=== PATIENT | male | born 1985 | race American Indian/Alaskan Native ===

== ENCOUNTER 2016-10-01 00:56 | Emergency (ER) | payer BC ==
[2016-10-01 00:57] VITALS: BMI 24.7
[2016-10-01 01:16] VITALS: BP 116/71; PULSE 56; RESP 16; TEMP 98; O2SAT 99
[2016-10-01] MEDS ORDERED: Sodium Chloride 0.9% 1,000 ML IV STA (01:29)
[2016-10-01 01:58] LABS: BASO % 0.4 % (0.0-2.0); EOS # 0.2 K/uL (0.0-0.7); HEMATOCRIT 43.2 % (35.0-51.0); LYMPH # 1.1 K/uL (1.0-4.3); LYMPH % 25.6 % (20.0-40.0); MEAN CELL VOLUME 88.8 fl (80.0-94.0); MEAN CORPUSCULAR HEMOGLOBIN 29.1 pg (27.0-31.0); MEAN CORPUSCULAR HGB CONC 32.7 g/dL (33.0-37.0); MEAN PLATELET VOLUME 8.3 fl (7.2-11.7); MONO # 0.5 K/uL (0.0-0.8); MONO % 11.2 % (0.0-10.0); NEUT # 2.5 K/uL (1.8-7.0); NEUT % 57.8 % (50.0-75.0); RED CELL DISTRIBUTION WIDTH 13.1 % (11.5-14.5); WHITE BLOOD COUNT 4.4 K/uL (4.8-10.8)
[2016-10-01 02:06] LABS: RBC URINE 25318 /hpf (0-3); URINE BACTERIA RARE (<OCC); URINE BILIRUBIN NEGATIVE (NEGATIVE); URINE BLOOD LARGE (NEGATIVE); URINE COLOR RED (YELLOW); URINE GLUCOSE (UA) 150 mg/dL (Normal); URINE KETONE TRACE mg/dL (NEGATIVE); URINE LEUKOCYTE ESTERASE TRACE Leu/uL (Negative); URINE PROTEIN >=500 mg/dL (NEGATIVE); URINE UROBILINOGEN 0.2-1.0 mg/dL (0.2-1.0); WBC URINE 52 /hpf (0-5)
[2016-10-01 02:10] LABS: BLOOD UREA NITROGEN 12 mg/dl (9-20); CALCIUM 9.6 mg/dL (8.4-10.2); CARBON DIOXIDE 26 mmol/L (22-30); CHLORIDE 102 mmol/L (98-107); GFR AFRICAN-AMERICAN > 60; GLUCOSE,RANDOM 99 mg/dL (75-110); POTASSIUM 3.9 MMOL/L (3.6-5.0); SODIUM 139 mmol/l (132-148)
--- NOTE | 2016-10-01 02:41 | ED PDOC ---
HPI: Male Pain Time Seen by Provider: 10/01/16 01:09 Chief Complaint (Nursing): Male Genitourinary Chief Complaint (Provider): hematuria History Per: Patient History/Exam Limitations: no limitations Onset/Duration Of Symptoms: Hrs Current Symptoms Are (Timing): Intermittent Episodes Additional Complaint(s): 31yo male with PMHx including benign bladder tumor (follows up at [facility] w/ Dr. Tony) presents to the ED with c/o 2 episodes of hematuria tonight. Denies any pain, lightheadedness, dizziness. Patient had a cystoscopy 1 month ago at [facility] that was normal. Patient states hematuria resolved 1 week ago but then began again tonight. Past Medical History Reviewed: Historical Data, Nursing Documentation, Vital Signs Vital Signs: Last Vital Signs Temp 98.0 F 10/01/16 01:13 Pulse 56 L 10/01/16 01:13 Resp 16 10/01/16 01:13 BP 116/71 10/01/16 01:13 Pulse Ox 99 10/01/16 01:13 - Medical History PMH: Denies: Anxiety, Bipolar Disorder, Depression, Personality Disorder, Post Traumatic Stress Disorder, Chronic Kidney Disease, Schizophrenia Other PMH: benign bladder tumor - Surgical History Surgical History: Denies: Pacemaker Other surgeries: cystoscopy - Family History Family History: States: No Known Family Hx - Immunization History Hx Tetanus Toxoid Vaccination: No Hx Influenza Vaccination: No Hx Pneumococcal Vaccination: No - Home Medications Home Medications: Ambulatory Orders Medication Instructions Recorded Ibuprofen [Motrin Tab] 400 mg PO BID 11/03/15 Oxybutynin Chloride [Oxybutynin 5 mg PO DAILY 11/03/15 Chloride ER] Tramadol HCl [Ultram] 50 mg PO Q6 PRN #20 tab 11/03/15 Acetaminophen with Codeine 1 tab PO Q6 PRN 11/21/15 [Tylenol with Codeine #3 Tablet] Amoxicillin/Clavulanate [Augmentin 1 tab PO Q12 11/21/15 875 MG-125 MG Tab] Meth/Meblue/Sod Phos/Psal/Hyos 1 each PO DAILY 11/21/15 [Uroav-B Capsule] - Allergies Allergies/Adverse Reactions: Allergies Allergy/AdvReac Type Severity Reaction Status Date / Time kiwi AdvReac RASH Verified 11/03/15 11:16 Review of Systems ROS Statement: Except As Marked, All Systems Reviewed And Found Negative Constitutional: Positive for: Other (no lightheadedness ) Genitourinary Male: Positive for: Hematuria Neurological: Negative for: Dizziness Physical Exam - Reviewed Nursing Documentation Reviewed: Yes Vital Signs Reviewed: Yes - Physical Exam Appears: Positive for: Well, No Acute Distress Head Exam: Positive for: ATRAUMATIC, NORMAL INSPECTION, NORMOCEPHALIC Skin: Positive for: Normal Color, Warm, Dry Eye Exam: Positive for: Normal appearance, EOMI, PERRL ENT: Positive for: Normal ENT Inspection Neck: Positive for: Normal, Painless ROM, Supple Cardiovascular/Chest: Positive for: Regular Rate, Rhythm. Negative for: Murmur , Tachycardia Respiratory: Positive for: Normal Breath Sounds. Negative for: Wheezing, Respiratory Distress Gastrointestinal/Abdominal: Positive for: Normal Exam, Soft. Negative for: Tenderness Back: Positive for: Normal Inspection. Negative for: L CVA Tenderness, R CVA Tenderness Extremity: Positive for: Normal ROM. Negative for: Deformity, Swelling Neurologic/Psych: Positive for: Alert, Oriented - Laboratory Results Result Diagrams: 10/01/16 01:46 10/01/16 01:46 - ECG O2 Sat by Pulse Oximetry: 99 Pulse Ox Interpretation: Normal (RA) Medical Decision Making Medical Decision Makin: Impression: hematuria Plan: Labs IVF reassess [id number]: Spoke with Dr. Tony's answering service, states patient can be discharged home and f/u outpatient. After IVF, urine starting to clear up. Results given to patient to take to PCP. Patient stable for d/c. Return precautions given. Scribe Attestation: Documented by Bong Gottlieb acting as a scribe for Mj Linder MD. Provider Scribe Attestation: All medical record entries made by the Scribe were at my direction and personally dictated by me. I have reviewed the chart and agree that the record accurately reflects my personal performance of the history, physical exam, medical decision making, and the department course for this patient. I have also personally directed, reviewed, and agree with the discharge instructions and disposition. Disposition - Clinical Impression Clinical Impression: Hematuria - Patient ED Disposition Is Patient to be Admitted: No Counseled Patient/Family Regarding: Studies Performed, Diagnosis, Need For Followup - Disposition Referrals: Ashlee Sylvester MD [Primary Care Provider] - Disposition: Routine/Home Disposition Time: 02:36 Condition: IMPROVED Additional Instructions: Please followup with Dr. Tony within 1-2 days. Instructions: Acute Hematuria (ED)
== END 2016-10-01 03:07 | disposition home or self-care (01) ==
LOC: H.ER 00:56
DX: N39.0 Urinary tract infection, site not specified (principal)
CPT/HCPCS: 80048; 81003; 85025; 96360; 99282; J7040